=== PATIENT | male | born 1955 | race Caucasian/White ===

== ENCOUNTER 2016-11-03 16:52 | Emergency (ER) | payer OTHER, BC ==
[~2016-11-03] VITALS: Ht 177.8 cm; Wt 122.5 kg
--- NOTE | ~2016-11-03 | EKG ---
[address]{img} [place] [address] ELECTROCARDIOGRAM REPORT Name: LOUISMARIEMICHAUD [facility] [id number] Admission: 11/03/16 Attend Phys: Discharge: 11/03/16 Date of : 51 Report #: [id number] THIS REPORT FOR: //name// [facility] ED Test Date: 2016-11-03 Test Time: 17:22:30 Pat Name: MARIE MYERS Department: Room: Gender: M It Auditor: Aliyah KWAN : 1955 Requested By: Austyn Lazo Order Number: [id number] MD: Vincent Ruvalcaba Measurements Intervals [place] Rate: 60 P: 0 DC: 159 QRS: 132 QRSD: 162 T: -43 QT: 503 QTc: 503 Interpretive Statements No significant changeAtrial-paced complexes Nonspecific intraventricular conduction delay Borderline ST depression, anterolateral leads Baseline wander in lead(s) V2 Compared to ECG 03/07/2016 17:24:23 Electronically Signed On 11-04-2016 16:40:09 GEOPHYSICAL SUPPORT SPECIALIST by Vincent Ruvalcaba [email or web address] <ELECTRONICALLY SIGNED> By: Vincent Ruvalcaba MD 11/04/16 [facility] 21 21 Vincent Ruvalcaba MD /MARITZA
[~2016-11-03 16:52] MED LIST: ALLOPURINOL 10100 M1 PO; APAP650 PO; ASPIR 8181 MG PO; ATORVASTATIN CA40 MG PO; AUGMENTIN 875-1 EACH PO; AVAPRO 150 MG150 M1 PO; BRILINTA90 MG PO; COREG6.25 MG PO; CRESTOR10 MG PO; DEMADEX20 MG PO; DIGOXIN125 MCG PO; EFFIENT10 MG PO; ELIQUIS5 MG PO; NITROGLYCERIN0.4 MG SUBLING; PACERONE 200 M200 M1 PO; PROAIR HFA8.5 GM INH; PROTONIX40 M1 PO; RANEXA500 MG PO; ULORIC40 MG PO; UNICOMPLEX M TA1 TA1 PO; VITAMIN B-1100 M1 PO; VITAMINC500 PO
[2016-11-03 17:42] LABS: ABSOLUTE NEUTROPHILS 7.3 thou/uL (1.4-8.2); BASOPHILS 1.2 % (0.0-2.0); EOSINOPHILS 2.4 % (0.0-3.0); HEMATOCRIT 31.2 % (42.0-52.0); HEMOGLOBIN 9.4 gm/dL (14.0-18.0); MCHC 30.3 % (28.0-37.0); MCV 79.2 fL (80.0-100.0); MONOCYTES 11.1 % (1.0-8.0); PLATELET COUNT 236 thou/uL (150-400); POLYS 72.3 % (36.0-66.0); RBC 3.93 mil/uL (4.50-6.00); RDW 21.2 % (10.5-14.5); WBC 10.1 thou/uL (4.0-11.0)
[2016-11-03 17:43] LABS: MANUAL DIFF NO
[2016-11-03 17:50] LABS: ANION GAP 12 mmol/L (7-16); BUN 13 mg/dL (7-18); CALCIUM 8.5 mg/dL (8.5-10.1); CHLORIDE 98 mmol/L (98-107); CO2 26 mmol/L (21-32); CREATININE 1.2 mg/dL (0.6-1.3); GLUCOSE 87 mg/dL (70-99); POTASSIUM 3.7 mmol/L (3.5-5.1); SODIUM 136 mmol/L (136-145)
[2016-11-03 18:04] LABS: NT-PRO BRAIN NAT PEPTIDE 1991 pg/mL (<300); TROPONIN-I < 0.04 ng/mL (<0.04-0.07)
[2016-11-03] MEDS ORDERED: MEDROLDOSEPACK PO (19:30)
[2016-11-26] MEDS ORDERED: IRON325 PO (11:54)
[2016-11-26] MEDS ORDERED: PROTONIX 20 MG20 M1 PO (11:55)
[2016-11-29] MEDS ORDERED: HYDROCODONE-AP1 EAC6 PO (12:42)
== END 2016-11-03 19:39 | disposition home or self-care (01) ==
LOC: ER 16:52
PROVIDERS: Physician Assistant
DX: J40 Bronchitis, not specified as acute or chronic (principal); D64.9 Anemia, unspecified; K92.2 Gastrointestinal hemorrhage, unspecified; I50.9 Heart failure, unspecified; I25.2 Old myocardial infarction; Z87.891 Personal history of nicotine dependence

== ENCOUNTER 2016-11-06 20:31 | Emergency (ER) | payer OTHER, BC ==
[~2016-11-06] VITALS: Ht 177.8 cm; Wt 117.9 kg
--- NOTE | ~2016-11-06 | EKG ---
[place] [address] [facility] [place] [address] ELECTROCARDIOGRAM REPORT Name: MARIE MYERS Room #: DEP [facility] [id number] Admission: 11/06/16 Attend Phys: Discharge: 11/06/16 Date of : 51 Report #: [id number] THIS REPORT FOR: //name// [facility] ED Test Date: 2016-11-06 Test Time: 21:06:59 Pat Name: MARIE MYERS Department: Room: Gender: M Lands Resource Manager: SLAVA : 1955 Requested By: Vanessa Bonner Order Number: [id number] MD: Andrew Rivers Measurements Intervals [place] Rate: 60 P: CO: QRS: 121 QRSD: 156 T: -49 QT: 490 QTc: 490 Interpretive Statements Possible ventricular pacing Compared to ECG 11/03/2016 17:22:30 No significant change was found Electronically Signed On 11-07-2016 7:45:56 CHILD CARE CENTRE DIRECTOR by Andrew Rivers [email or web address] <ELECTRONICALLY SIGNED> By: Andrew Rievrs MD, [facility] 11/07/16 0745 2106 2106 Andrew Rivers MD, FACC /EPI
[~2016-11-06 20:31] MED LIST changes: +MEDROLDOSEPACK PO
[2016-11-06 21:21] LABS: ANION GAP 10 mmol/L (7-16); BUN 18 mg/dL (7-18); CALCIUM 8.5 mg/dL (8.5-10.1); CHLORIDE 98 mmol/L (98-107); CO2 26 mmol/L (21-32); CREATININE 1.3 mg/dL (0.6-1.3); GLUCOSE 130 mg/dL (70-99); POTASSIUM 4.4 mmol/L (3.5-5.1); SODIUM 134 mmol/L (136-145)
[2016-11-06 21:22] LABS: HEMATOCRIT 33.9 % (42.0-52.0); HEMOGLOBIN 9.9 gm/dL (14.0-18.0); MCH 24.3 pg (26.0-34.0); MCHC 29.3 % (28.0-37.0); MCV 82.7 fL (80.0-100.0); PLATELET COUNT 282 thou/uL (150-400); RDW 24.6 % (10.5-14.5); WBC 14.2 thou/uL (4.0-11.0)
[2016-11-06 21:25] LABS: MANUAL DIFF YES
[2016-11-06 21:34] LABS: NT-PRO BRAIN NAT PEPTIDE 2330 pg/mL (<300); TROPONIN-I < 0.04 ng/mL (<0.04-0.07)
[2016-11-06 21:51] LABS: ABSOLUTE NEUTROPHILS 12.6 thou/uL (1.4-8.2); ANISOCYTOSIS 2+; NUCLEATED RBCS 2 /100WBC; POIKILOCYTOSIS SLIGHT; POLYCHROMASIA SLIGHT; TOTAL CELL COUNT 100
[2016-11-26] MEDS ORDERED: IRON325 PO (11:54)
[2016-11-26] MEDS ORDERED: PROTONIX 20 MG20 M1 PO (11:55)
[2016-11-29] MEDS ORDERED: HYDROCODONE-AP1 EAC6 PO (12:42)
== END 2016-11-06 23:40 | disposition home or self-care (01) ==
LOC: ER 20:31
PROVIDERS: Emergency Medicine
DX: J06.9 Acute upper respiratory infection, unspecified (principal); M10.9 Gout, unspecified; I25.2 Old myocardial infarction; I25.810 Atherosclerosis of coronary artery bypass graft(s) without angina pectoris; Z87.891 Personal history of nicotine dependence

== ENCOUNTER 2017-07-19 12:59 | Emergency (ER) | payer OTHER, BC ==
[~2017-07-19] VITALS: Ht 177.8 cm; Wt 117.9 kg
[~2017-07-19 12:59] MED LIST changes: +HYDROCODONE-AP1 EAC6 PO; +IRON325 PO; +PROTONIX 20 MG20 M1 PO
[2017-07-19] MEDS ORDERED: CARVEDILOL6.25 MG (13:20)
[2017-07-19] MEDS ORDERED: PROTONIX 20 MG20 M1 PO (13:21)
[2017-07-19] MEDS ORDERED: AVAPRO 150 MG150 MG PO (13:21)
[2017-07-19] MEDS ORDERED: TRAMADOL 50 MG50 MG PO (14:26)
== END 2017-07-19 14:56 | disposition home or self-care (01) ==
LOC: ER 12:59
DX: M19.071 Primary osteoarthritis, right ankle and foot (principal); F10.99 Alcohol use, unspecified with unspecified alcohol-induced disorder; I25.2 Old myocardial infarction; Z87.891 Personal history of nicotine dependence

== ENCOUNTER 2017-07-23 06:30 | Observation (INO) | payer OTHER, BC ==
[~2017-07-23] VITALS: Ht 177.8 cm; Wt 122.4 kg
--- NOTE | ~2017-07-23 | P ---
[facility] [address] [place] [address] PROCEDURE REPORT Name: MARIE MYERS Room #: 212-P [facility].Ryne#: [id number] Admission: 07/23/17 Attend Phys: Qamar Echavarria MD Discharge: Date of : 51 Report #: [id number] THIS REPORT FOR: //name// CC: Mayco Echavarria DATE OF SERVICE: 07/23/2017 PREOPERATIVE DIAGNOSES: 1. Ischemic cardiomyopathy. 2. Left bundle-branch block. 3. Class 2-3 heart failure symptoms. HISTORY OF PRESENT ILLNESS: The patient is a 61-year-old with history of coronary artery disease status post CABG, history of an ischemic cardiomyopathy status post dual chamber ICD implantation implanted at an outside hospital. His ICD was recently noted to be at the elective replacement interval. He has had a known left bundle-branch block and has an EF of 35% with class 2-3 heart failure symptoms. He is here for an upgrade to a BiV ICD with a generator exchange. ANESTHESIA: The patient underwent MAC anesthesia with no anesthesia related complications. DESCRIPTION OF PROCEDURE: The patient underwent informed consent. We discussed the details of the procedure including the risks, which include but are not limited to bleeding, infection, vascular damage, cardiac perforation and pneumothorax. He understood these risks and was willing to proceed. The patient was brought to the EP laboratory in a fasting and sedated state and prepped and draped in a sterile fashion and received IV antibiotics prior to initiation of the procedure. A venogram was performed to look for patency of the left axillary vein. This was performed given his prior instrumentation of the left subclavian vessel. This showed patency of the left axillary vein. Next, I injected lidocaine to the prior incision site. The incision was opened and the device was taken out the pocket. I dissected out the leads. Next, I obtained access to the left axillary vein times 1 using the extrathoracic approach with the guidewire noted to be into the right atrium. Next, a 10-Wolof sheath was placed using the modified Seldinger technique. Next, the coronary sinus sheath was placed into the right atrium and it went very easily into the coronary sinus. I then performed a venogram. There was a nice posterior branch that was coming off the mid aspect of the coronary body. In fact, the sheath ____ this vessel as it came off the main coronary body at a 30-degree angle. I was easily able to place a lead into this vessel. However, there was a very high threshold throughout. I was able to advance the lead more atypically and there was a threshold of around 2 volts at 1.5 milliseconds. However, I did not like this location for the lead as it would be essentially an [address] [address] PROCEDURE REPORT Name: MARIE MYERS Room #: 212-P [facility] Nicole Pardo#: [id number] Admission: 07/23/17 Attend Phys: Qamar Echavarria MD Discharge: Date of : 51 Report #: [id number] apical pacing lead. I therefore pulled the lead back slightly and tried to see if anywhere along this large vessel there were good thresholds. I could not really find a good threshold. It recently had been noted that the patient had been taking the long dose of his amiodarone at 400 mg twice a day. We had had him stop his amiodarone approximately 1 week ago. I thought maybe this was contributing to the very high thresholds. I therefore took the lead to the posterior lateral branch. Again, thresholds were high throughout. I was able to finally find a descent pacing threshold pacing from M2 to the RV coil. The threshold was 1.7 volts at 1.0 millisecond. As such, the sheath was split and the LV lead was sutured to the prepectoral fascia. The leads were connected to the new device and tug test were performed. Thresholds, impedances and sensing were all stable. The pocket was then irrigated with vancomycin solution and then the pocket was closed in 3 layers and surgical glue was placed to the outer skin layer. The patient awoke neurologically and hemodynamically intact with no complications and no significant bleeding. The explanted generator was a [employer] model #251778, serial #[id number] originally. The newly implanted generator was a [employer] model #[id number], serial #[id number]. The atrial lead was a [employer] model #188TC, serial #[id number]. This lead demonstrated no underlying atrial signals. The impedance was 390 ohms and the pacing threshold was 0.75 volts at 0.4 milliseconds. The RV lead was a [employer] model #7120, serial #[id number]. This lead demonstrated pacing threshold of 1 volt at 0.4 milliseconds with a pacing impedance of 440 ohms and shock impedance within normal limits. The LV lead was a [employer] model #1458Q, 86 cm, serial [id number]. This lead demonstrated a pacing impedance of 640 ohms, pacing threshold of 1.75 volts at 1 millisecond. The pacing configuration was vector 5. also which is pacing from M2 to RV coil. This was utilized as the final pacing configuration given that it had the best pacing threshold. The device was programmed to the DDDR 60-110 mode. The VT zone was set at 150 with ATP times 9 followed by shocks. The VT2 zone was set at 180-230 beats per minute with ATP times 6 followed by max output shocks and the VF zone was set with ATP while charging followed by max output shocks. CONCLUSIONS: 1. Successful upgrade to a biventricular ICD. 2. Satisfactory generator exchange. 3. Satisfactory atrial, right ventricular, left ventricular pacing and sensing thresholds. By: 1055 1146 Qamar Echavarria MD /nt
[~2017-07-23 06:30] MED LIST changes: +AVAPRO 150 MG150 MG PO; +CARVEDILOL6.25 MG; +TRAMADOL 50 MG50 MG PO
[2017-07-23 07:07] LABS: HEMOGLOBIN 14.1 gm/dL (14.0-18.0)
[2017-07-23 07:09] LABS: ABSOLUTE NEUTROPHILS 6.8 thou/uL (1.4-8.2); BASOPHILS 1.3 % (0.0-2.0); EOSINOPHILS 3.5 % (0.0-3.0); HEMATOCRIT 41.1 % (42.0-52.0); MCHC 34.4 g/dL (28.0-37.0); MONOCYTES 9.5 % (1.0-8.0); PLATELET COUNT 264 thou/uL (150-400); POLYS 72.7 % (36.0-66.0); RBC 4.29 mil/uL (4.50-6.00); RDW 13.6 % (10.5-14.5); WBC 9.4 thou/uL (4.0-11.0)
[2017-07-23 07:14] LABS: MANUAL DIFF NO
[2017-07-23] MEDS ORDERED: IRON325 PO (07:15)
[2017-07-23 07:28] LABS: CALCIUM 9.3 mg/dL (8.5-10.1); CREATININE 1.2 mg/dL (0.7-1.3); POTASSIUM 4.2 mmol/L (3.5-5.1)
[2017-07-23 07:29] LABS: APTT 31.3 Seconds (24.5-32.8); PROTIME 10.7 Seconds (9.3-11.4)
[2017-07-23 07:30] VITALS: BP 115/73
[2017-07-23] MEDS ORDERED: XARELTO10 M1 PO (07:30)
[2017-07-23 07:34] LABS: TOTAL BILIRUBIN 0.9 mg/dL (<0.1-1.0); TOTAL PROTEIN 7.9 g/dL (6.4-8.2)
[2017-07-23 15:24] VITALS: BP 131/67
[2017-07-23 19:11] VITALS: BP 152/90
[2017-07-23 23:38] VITALS: BP 145/80
[2017-07-24 03:57] VITALS: BP 139/80
[2017-07-24 07:15] VITALS: BP 135/75
[2017-07-24 11:01] VITALS: BP 135/75
[2017-07-24 11:35] VITALS: BP 136/76
== END 2017-07-24 16:24 | disposition home or self-care (01) ==
LOC: CATH 06:30 → 2N 11:31 → CATH 13:51 → ENTRNSPT 07-24 16:07 → 2N 07-24 16:24
PROVIDERS: Internal Medicine Cardiovascular Disease
DX: I25.10 Atherosclerotic heart disease of native coronary artery without angina pectoris (principal); I25.5 Ischemic cardiomyopathy; I11.0 Hypertensive heart disease with heart failure; I50.22 Chronic systolic (congestive) heart failure; I44.7 Left bundle-branch block, unspecified; I25.2 Old myocardial infarction; J44.9 Chronic obstructive pulmonary disease, unspecified; E78.00 Pure hypercholesterolemia, unspecified; I48.0 Paroxysmal atrial fibrillation; Z95.810 Presence of automatic (implantable) cardiac defibrillator; Z87.891 Personal history of nicotine dependence

== ENCOUNTER 2017-11-22 16:47 | Emergency (ER) | payer OTHER, BC ==
[~2017-11-22] VITALS: Ht 175.3 cm; Wt 117.9 kg
--- NOTE | ~2017-11-22 | EKG ---
[place] [address] [facility] [place] [address] ELECTROCARDIOGRAM REPORT Name: MARIE MYERS [facility] [id number] Admission: 11/22/17 Attend Phys: Discharge: 11/22/17 Date of : 51 Report #: [id number] THIS REPORT FOR: //name// [facility] ED Test Date: 2017-11-22 Test Time: 17:01:37 Pat Name: MARIE MYERS Department: Room: Gender: Burner Machine Operator: MZOOK : 1955 Requested By: Suman Romo Order Number: [id number] MD: Andrew Rivers Measurements Intervals [place] Rate: 60 P: 0 CT: 152 QRS: 147 QRSD: 224 T: -66 QT: 459 QTc: 459 Interpretive Statements Atrial-ventricular dual-paced rhythm No further analysis attempted due to paced rhythm Baseline wander in lead(s) V4 Compared to ECG 11/06/2016 21:06:59 No significant changes Electronically Signed On 11-23-2017 9:00:14 KINDERGARTEN PREP TEACHER by Andrew Rivers [email or web address] <ELECTRONICALLY SIGNED> By: Andrew Rivers MD, [facility] 11/23/17 0900 170 170 Andrew Rivers MD, [facility] /EPI
[~2017-11-22 16:47] MED LIST changes: +XARELTO10 M1 PO
[2017-11-22] MEDS ORDERED: XARELTO20 MG PO (17:21)
[2017-11-22 17:38] LABS: HEMATOCRIT 40.1 % (42.0-52.0); HEMOGLOBIN 13.5 gm/dL (14.0-18.0); MCH 31.3 pg (26.0-34.0); MCHC 33.7 g/dL (28.0-37.0); MCV 92.8 fL (80.0-100.0); PLATELET COUNT 228 thou/uL (150-400); RBC 4.32 mil/uL (4.50-6.00); RDW 14.2 % (10.5-14.5)
[2017-11-22 17:50] LABS: ANION GAP 15 mmol/L (7-16); BUN 30 mg/dL (7-18); CALCIUM 8.9 mg/dL (8.5-10.1); CHLORIDE 96 mmol/L (98-107); CO2 22 mmol/L (21-32); CREATININE 1.3 mg/dL (0.7-1.3); GLUCOSE 95 mg/dL (74-106); POTASSIUM 4.3 mmol/L (3.5-5.1); SODIUM 133 mmol/L (136-145)
[2017-11-22 17:55] LABS: APTT 41.2 Seconds (24.5-32.8); INR 1.3; PROTIME 12.8 Seconds (9.3-11.4)
[2017-11-22 17:58] LABS: ALBUMIN 4.3 g/dL (3.4-5.0); MAGNESIUM 2.3 mg/dL (1.8-2.4); SGOT 47 U/L (15-37); SGPT 64 U/L (30-65); TOTAL BILIRUBIN 0.5 mg/dL (<0.1-1.0); TOTAL PROTEIN 7.5 g/dL (6.4-8.2); TROPONIN-I < 0.04 ng/mL (<0.06)
[2017-11-22 18:02] LABS: ABSOLUTE NEUTROPHILS 5.7 thou/uL (1.4-8.2); ANISOCYTOSIS 1+; METAMYELOCYTES 1 %; POLYCHROMASIA OCCASIONAL
[2017-11-22] MEDS ORDERED: PREDNISONE 20 M20 MG PO (18:16)
[2017-11-22] MEDS ORDERED: TESSALON PERLE100 MG PO (18:16)
[2017-11-22] MEDS ORDERED: TRAMADOL 50 MG50 MG PO (18:16)
[2017-11-22 18:24] VITALS: BP 133/74
[2018-07-04] MEDS ORDERED: IRON325 PO (09:34)
[2018-08-20] MEDS ORDERED: ASPIRIN325 PO (06:49)
[2018-08-20] MEDS ORDERED: AVAPRO 150 MG150 MG PO (06:50)
[2018-08-20] MEDS ORDERED: PROTONIX 20 MG20 M1 PO (06:51)
[2018-08-20] MEDS ORDERED: XARELTO10 MG PO (06:53)
[2018-08-20] MEDS ORDERED: TORSEMIDE20 MG PO (06:55)
[2018-08-20] MEDS ORDERED: VITAMIN D35000 UNI1 PO (07:31)
[2018-08-20] MEDS ORDERED: SPIRONOLACTONE25 MG PO (13:10)
== END 2017-11-22 18:25 | disposition home or self-care (01) ==
LOC: ER 16:47
PROVIDERS: Emergency Medicine
DX: J06.9 Acute upper respiratory infection, unspecified (principal); I25.10 Atherosclerotic heart disease of native coronary artery without angina pectoris; M10.9 Gout, unspecified; I25.2 Old myocardial infarction; I48.91 Unspecified atrial fibrillation; J44.9 Chronic obstructive pulmonary disease, unspecified; E78.5 Hyperlipidemia, unspecified; I10 Essential (primary) hypertension; Z87.891 Personal history of nicotine dependence

== ENCOUNTER → 2018-01-28 | Outpatient (CLI) | payer OTHER, BC ==
[~2018-01-28] MED LIST changes: +PREDNISONE 20 M20 MG PO; +TESSALON PERLE100 MG PO; +XARELTO20 MG PO
--- NOTE | ~2018-01-28 | 2DMMODE ---
[facility] [address] [place] [address] 2 D/M-MODE ECHOCARDIOGRAM Name: MYERSMARIEMICHAUD Room #: REG [facility]#: [id number] Admission: 01/28/18 Attend Phys: Qamar Echavarria Discharge: Date of : 51 Date of Service: 01/28/18 1228 Report #: [id number] THIS REPORT FOR: //name// APPROVED REPORT Study performed: 01/28/2018 11:01:23 EXAM: Comprehensive 2D, Doppler, and color-flow Echocardiogram Patient Location: Out-Patient Status: routine BSA: 2.31 HR: 59 bpm BP: 140/86 mmHg Other Information Study Quality: Adequate Indications Cardiomyopathy. Hx: VT, CABG, stents, CHF, ICD, COPD, HTN, HLP 2D Dimensions RVDd: 50.55 mm LVEF(%): 29.65 (>50%) IVSd: 12.53 (7-11mm) LVOT Diam: 24.44 (18-24mm) LVDd: 69.66 mm PWd: 12.50 (7-11mm) Ascending Ao: 35.63 (22-36mm) LVDs: 59.67 (25-40mm) Aortic Root: 36.49 mm Davis's LVEF: 29.65 % Volumes Left Atrial Volume (Systole) Single Plane 4CH: 96.47 mL Single Plane 2CH: 105.71 mL LA ESV Index: 47.00 mL/m2 Aortic Valve AoV Peak Buddy.: 1.40 m/s AO Peak Gr.: 7.81 mmHg LVOT Max P.88 mmHg LVOT Max V: 0.98 m/s NORTH Vmax: 3.31 cm2 Mitral Valve E/A Ratio: 0.8 MV Decel. Time: 279.48 ms MV E Max Buddy.: 0.55 m/s [facility] [place] [address] 2 D/M-MODE ECHOCARDIOGRAM Name: MARIE MYERS Room #: REG [facility]#: [id number] Admission: 01/28/18 Attend Phys: Qamar Echavarria Discharge: Date of : 51 Date of Service: 01/28/18 1228 Report #: [id number] MV A Buddy.: 0.73 m/s MV PHT: 81.05 ms IVRT: 96.89 ms Pulmonary Valve PV Peak Buddy.: 1.08 m/s PV Peak Gr.: 4.65 mmHg Tricuspid Valve TR Peak Buddy.: 2.96 m/s RAP Estimate: 5.00 mmHg TR Peak Gr.: 35.07 mmHg PA Pressure: 40.00 mmHg Left Ventricle Left ventricle is dilated. Mild concentric left ventricular hypertrophy. Left ventricular systolic function is moderate to severely decreased. LVEF is30- 35%. Mild diastolic dysfunction is present (impaired relaxation pattern). Right Ventricle Right ventricle is dilated. Right ventricle is hypokinetic. Device lead is present in the right ventricle. Atria Left atrium is severely dilated. Right atrium is moderately dilated. Aortic Valve The aortic valve is normal in structure. Trace aortic regurgitation. There is no aortic valvular stenosis. Mitral Valve The mitral valve is normal in structure. Moderate mitral regurgitation. Tricuspid Valve The tricuspid valve is normal in structure. Mild to moderate tricuspid regurgitation. Estimated PAP is 40-45mmHg. Pulmonic Valve The pulmonary valve is normal in structure. Mild pulmonic regurgitation. Great Vessels The aortic root is normal in size. The ascending aorta is normal in size. IVC is normal in size and collapses >50% with inspiration. [facility] [address] [place] [address] 2 D/M-MODE ECHOCARDIOGRAM Name: MARIE MYERS Room #: REG Edvin#: [id number] Admission: 01/28/18 Attend Phys: Qamar Echavarria Discharge: Date of : 51 Date of Service: 01/28/18 1228 Report #: [id number] Pericardium There is no pericardial effusion. <Conclusion> Left ventricle is dilated. Mild concentric left ventricular hypertrophy. Left ventricular systolic function is moderate to severely decreased. LVEF is30- 35%. Mild diastolic dysfunction is present (impaired relaxation pattern). Right ventricle is dilated. Right ventricle is hypokinetic. Left atrium is severely dilated. Right atrium is moderately dilated. The aortic valve is normal in structure. Moderate mitral regurgitation. Mild to moderate tricuspid regurgitation. Estimated PAP is 40-45mmHg. The aortic root is normal in size. There is no pericardial effusion. <ELECTRONICALLY SIGNED> By: Timi Keen MD, FACC 01/28/18 1228 1228 1228 Timi Keen MD, FACC /INF
== END ==
LOC: CV 10:48
DX: I42.9 Cardiomyopathy, unspecified (principal); I11.0 Hypertensive heart disease with heart failure; I50.9 Heart failure, unspecified; E78.5 Hyperlipidemia, unspecified; J44.9 Chronic obstructive pulmonary disease, unspecified

== ENCOUNTER 2018-04-20 18:56 | Inpatient (IN) | payer OTHER, BC ==
[~2018-04-20] VITALS: Ht 172.7 cm; Wt 127.5 kg
--- NOTE | ~2018-04-20 | EKG ---
[place] [address] [facility] [place] [address] ELECTROCARDIOGRAM REPORT Name: MARIE MYERS Room #: 240-P ADM IN M.R.#: [id number] Admission: 04/20/18 Attend Phys: [place] Menchaca Discharge: Date of : 51 Report #: [id number] THIS REPORT FOR: //name// [facility] Test Date: 2018-04-21 Test Time: 11:39:59 Pat Name: MARIE MYERS Department: Room: 240 P Gender: M Manager Public: STANLEY : 1955 Requested By: Qamar Echavarria Order Number: [id number] MD: Andrew Rivers Measurements Intervals [place] Rate: 60 P: 19 PA: 38 QRS: 143 QRSD: 186 T: -64 QT: 490 QTc: 490 Interpretive Statements Atrial-ventricular dual-paced rhythm No further analysis attempted due to paced rhythm Compared to ECG 11/22/2017 17:01:37 No significant changes Electronically Signed On 04-22-2018 17:00:37 CDT by Andrew Rivers [email or web address] <ELECTRONICALLY SIGNED> By: Andrew Rivers MD, [facility] 04/22/18 1700 1139 1139 Andrew Rivers MD, [facility] /EPI
--- NOTE | ~2018-04-20 | HC ---
[facility] [address] [place] [address] CONSULTATION Name: MARIE MYERS Room #: 240-P ADM IN M.R.#: [id number] Admission: 04/20/18 Attend Phys: [place] Menchaca Discharge: Date of : 51 Report #: [id number] THIS REPORT FOR: //name// CC: Mayco Menchaca DATE OF SERVICE: 04/21/2018 REASON FOR CONSULTATION: History of cardiomyopathy. HISTORY OF PRESENT ILLNESS: The patient is a 62-year-old patient of mine who has history of ischemic cardiomyopathy as well as recent upgrade to a biventricular ICD in 07/2017 as well as sustained ventricular tachycardia for which he is treated with amiodarone therapy. He presented to the hospital with severe abdominal pain and also some urinary frequency. He was diagnosed with pancreatitis. CT demonstrated pancreatitis. Abdominal ultrasound showed no significant stones. REVIEW OF SYSTEMS: GENERAL: No fevers or chills. HEENT: No blurred vision. CARDIOVASCULAR: As above. PULMONARY: No productive cough. GASTROINTESTINAL: He has been having the abdominal pain, some nausea. GENITOURINARY: He has been having some difficulty urinating. ENDOCRINE: No heat or cold intolerance. NEUROLOGIC: No focal weakness or stroke-like symptoms. PAST MEDICAL HISTORY: 1. Coronary artery disease, status post CABG. 2. Ischemic cardiomyopathy. 3. History of dual chamber ICD with upgrade to a biventricular ICD in 07/[address] 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 4. Sustained ventricular tachycardia, admitted for this in 2015, on amiodarone 400 mg a day. 5. Paroxysmal atrial fibrillation. FAMILY HISTORY: Noncontributory. SOCIAL HISTORY: Social drinking. ALLERGIES: None. MEDICATIONS: Have been reviewed. He is on anticoagulation, carvedilol, irbesartan, and amiodarone 400 mg b.i.d., which he needs for his cardiomyopathy and sustained ventricular tachycardia. [facility] [address] [place] [address] CONSULTATION Name: LOUISMARIE LA Room #: 240-P [facility] IN [facility]#: [id number] Admission: 04/20/18 Attend Phys: [place] Menchaca Discharge: Date of : 51 Report #: [id number] PHYSICAL EXAMINATION: VITAL SIGNS: Temperature is 37.1, pulse 60, respiration 20, blood pressure 116/67, sats are 95%. GENERAL: He is in no acute distress. HEENT: Oropharynx is clear. His sclerae are anicteric. NECK: Supple, no thyromegaly. HEART: Regular rate and rhythm with no murmurs, rubs or gallops. He does not have elevated jugular venous pressures. LUNGS: Clear to auscultation bilaterally. ABDOMEN: There is some epigastric tenderness, but no rebound. There is no hepatosplenomegaly. EXTREMITIES: There is no clubbing, cyanosis or edema. Pulses are 2+ throughout. NEUROLOGICAL: Cranial nerves 2-12 are intact. LABORATORY DATA: White count is hemoglobin is 10.4, platelets are 255. Chemistries: Sodium 136, potassium 4.3, chloride 100, BUN 18, creatinine 1.2, glucose 115. AST is 40, ALT is 59, alkaline phosphatase is 78. Troponin is negative x 1. ProBNP is pending. His lipase is 10,000 and was greater than 30,000. ASSESSMENT: 1. Pancreatitis. 2. Ischemic cardiomyopathy. 3. Coronary artery disease. 4. History of biventricular ICD implantation. 5. Paroxysmal atrial fibrillation. 6. Urinary frequency. PLAN: In summary, the patient is a 62-year-old with a history of cardiac disease, ventricular tachycardia, biventricular ICD, in with a newly diagnosed pancreatitis. GI is involved and will evaluate this further. Ideally, we could continue on amiodarone as this is suppressing his ventricular arrhythmias. I did discuss that he should not drink alcohol further. With regards his cardiomyopathy, this appears to be clinically stable and he does not appear to be in failure. With regards to his urinary issues, I will check a PSA and I will have the hospitalist evaluate this further. <ELECTRONICALLY SIGNED> By: Qamar Echavarria MD 04/22/18 1327 1142 1903 Qamar Echavarria MD /nt
--- NOTE | ~2018-04-20 | HC ---
[facility] [address] [place] [address] CONSULTATION Name: MARIE MYERS Room #: [address] [place] [address] IN M.R.#: [id number] Admission: 04/20/18 Attend Phys: [place] Menchaca Discharge: Date of : 51 Report #: [id number] THIS REPORT FOR: //name// CC: Mayco Echavarria MD DATE OF SERVICE: 04/21/2018 HISTORY OF PRESENT ILLNESS: The patient is a 62-year-old male, began having mid epigastric abdominal pain and became fairly severe yesterday. On admission, he was noted to have a lipase greater than 30,000. No previous history of pancreatitis. He does consume several beers on a regular basis. Apparently, he had a history of heavier alcohol use in the past. Today, he is feeling better. He is currently in the ICU. He is on oxygen several liters nasal cannula. He is not on oxygen at home. He denies being short of breath at home, but apparently he has a pulse ox at home and tested from time to time. He does have a history of smoking, but not recently. Currently, he is denying any nausea or vomiting. His bowel movements have been normal. His pain is under good control at this time. He denies any blood in his stools. He is not short of breath at rest currently. No fevers or chills. He states his last colonoscopy was 2 years ago, had some polyps removed and unfortunately had a post-polypectomy bleed apparently. PAST MEDICAL HISTORY: Coronary artery disease, previous history of OH in 1988, gout. He has undergone a CABG as well as stent placements in the past. Lower extremity cellulitis, pleural effusion history, previous history of alcohol abuse, history of ventricular tachycardia in 2016, atrial fibrillation, hypertension, COPD. MEDICATIONS ON ADMISSION: Coreg, Ranexa, Demadex, Lipitor, vitamin C, Xarelto, vitamin D, Avapro, Pacerone, aspirin. ALLERGIES: No known drug allergies. REVIEW OF SYSTEMS: As per HPI. SOCIAL HISTORY: Previous history of heavy smoking, not recently; previous history of heavy alcohol use, but continues. He states he consume several beers on a daily basis. FAMILY HISTORY: Positive for colon cancer in his mother in her 90s. PHYSICAL EXAMINATION: VITAL SIGNS: Temperature is 98.8, pulse 60, blood pressure 126/87, respiratory [facility] [address] [place] [address] CONSULTATION Name: MARIE MYERS Room #: 240-P [facility] IN .R.#: [id number] Admission: 04/20/18 Attend Phys: [place] Menchaca Discharge: Date of : 51 Report #: [id number] rate is 21, O2 sat is 95% on nasal canula oxygen. GENERAL: He is alert and oriented x 3, in no acute distress. HEENT: Sclerae nonicteric. Oropharynx clear. NECK: Supple without lymphadenopathy. CARDIOVASCULAR: Regular rate and rhythm. CHEST: With decreased breath sounds bilaterally. ABDOMEN: Soft. He is mildly tender to palpation in the mid epigastrium, nondistended. Positive bowel sounds. EXTREMITIES: No cyanosis, clubbing or edema. LABORATORY DATA: Sodium 136, potassium 4.3, chloride 100, bicarbonate 25, BUN 18, creatinine 1.2, glucose 115. AST is 40. Lipase yesterday greater than today is 10,057. Total bilirubin 0.8, alkaline phosphatase 78, uric acid 9.6, total protein 7.1, albumin 3.7. Troponins less than 0.06. Triglyceride level is 94. WBC is 16.2, hemoglobin 10.4, MCV is 76.6, platelet count is 255. CT scan of the abdomen and pelvis on admission yesterday shows pancreatitis changes without pseudocyst formation. There was fat stranding around the pancreas with non-organized fluid. Liver was normal. Gallbladder was present and normal. Ultrasound of the abdomen also performed. No evidence of cholelithiasis or bile duct obstruction, hepatomegaly without obvious hepatic steatosis was noted. Chest x-ray today shows generalized cardiomegaly without overt failure. ASSESSMENT AND PLAN: Pancreatitis, suspect this may be secondary to alcohol. The patient's triglyceride levels are normal. His gallbladder is normal without stones or ductal dilation both on CT and ultrasound as well as his bilirubin being normal. He has been on no new medications recently. Agree with current supportive care, IV fluids, pain medications, antinausea medications. We will repeat labs tomorrow. If they continue to improve, we will likely start clear liquids in the near future, would recommend discontinuing alcohol. Thank you for allowing me to participate in his care. <ELECTRONICALLY SIGNED> By: Mike Meier MD 04/22/18 1417 1538 2423 Mike Meier MD /nt
--- NOTE | ~2018-04-20 | EKG ---
[address] [place] [address] ELECTROCARDIOGRAM REPORT Name: MARIE MYERS Room #: 423-1 ADM IN M.R.#: [id number] Admission: 04/20/18 Attend Phys: [place] Menchaca Discharge: Date of : 51 Report #: [id number] THIS REPORT FOR: //name// [facility] Test Date: 2018-04-24 Test Time: 20:23:18 Pat Name: MARIE MYERS Department: Room: [facility] Gender: M Glue Drier Operator: alex : 1955 Requested By: Jordan Menchaca Order Number: [id number] MD: Andrew Rivers Measurements Intervals [place] Rate: 61 P: -52 RI: 116 QRS: 150 QRSD: 194 T: -41 QT: 520 QTc: 524 Interpretive Statements A-V dual-paced rhythm with some inhibition No further analysis attempted due to paced rhythm Baseline wander in lead(s) V3 Compared to ECG 04/21/2018 11:39:59 no significant change was found Electronically Signed On 04-25-2018 8:42:54 CDT by Andrew Rivers [email or web address] <ELECTRONICALLY SIGNED> By: Andrew Rivers MD, [facility] 04/25/18 0842 22 22 Andrew Rivers MD, [facility] /EPI
--- NOTE | ~2018-04-20 | EKG ---
[place] [address] [address] [facility] [place] [address] ELECTROCARDIOGRAM REPORT Name: MARIE MYERS Room #: 240-P ADM IN M.R.#: [id number] Admission: 04/20/18 Attend Phys: Jordan Menchaca Discharge: Date of : 51 Report #: [id number] THIS REPORT FOR: //name// [facility] ED Test Date: 2018-04-20 Test Time: 19:31:28 Pat Name: MARIE MYERS Department: Room: Gender: M Agricultural Education Instructor: Aliyah JUAREZ : 1955 Requested By: Suman Romo Order Number: [id number] MD: Andrew Rivers Measurements Intervals [place] Rate: 60 P: 12 MI: 83 QRS: 252 QRSD: 251 T: 111 QT: 635 QTc: 635 Interpretive Statements Atrial-ventricular dual-paced rhythm No further analysis attempted due to paced rhythm Compared to ECG 11/22/2017 17:01:37 No significant changes Electronically Signed On 04-22-2018 16:53:35 CDT by Andrew Rivers [email or web address] <ELECTRONICALLY SIGNED> By: Andrew Rivers MD, [facility] [id number] 30 30 Andrew Rivers MD, [facility] /EPI
[2018-04-20 19:10] VITALS: BP 155/78
[2018-04-20 19:37] LABS: ABSOLUTE NEUTROPHILS 12.9 thou/uL (1.4-8.2); BASOPHILS 1.2 % (0.0-2.0); EOSINOPHILS 1.6 % (0.0-3.0); HEMATOCRIT 34.2 % (42.0-52.0); HEMOGLOBIN 10.9 gm/dL (14.0-18.0); LYMPHOCYTES 4.1 % (24.0-44.0); MCH 24.3 pg (26.0-34.0); MCV 76.1 fL (80.0-100.0); MONOCYTES 4.7 % (1.0-8.0); PLATELET COUNT 263 thou/uL (150-400); POLYS 88.4 % (36.0-66.0); RDW 16.3 % (10.5-14.5); WBC 14.6 thou/uL (4.0-11.0)
[2018-04-20 19:40] LABS: ANION GAP 9 mmol/L (7-16); BUN 16 mg/dL (7-18); CALCIUM 9.4 mg/dL (8.5-10.1); CHLORIDE 97 mmol/L (98-107); CO2 26 mmol/L (21-32); CREATININE 1.1 mg/dL (0.7-1.3); GLUCOSE 118 mg/dL (74-106); POTASSIUM 3.7 mmol/L (3.5-5.1); SODIUM 132 mmol/L (136-145)
[2018-04-20 19:56] LABS: ALBUMIN 4.3 g/dL (3.4-5.0); SGOT 65 U/L (15-37); SGPT 78 U/L (30-65); TOTAL BILIRUBIN 0.9 mg/dL (<0.1-1.0); TOTAL PROTEIN 7.7 g/dL (6.4-8.2); TROPONIN-I <0.06 ng/mL (<0.06)
[2018-04-20 20:08] LABS: LIPASE > 30000 U/L (73-393)
[2018-04-20] MEDS ORDERED: VITAMIN D2000 UNIT PO (20:53)
[2018-04-20] MEDS ORDERED: AVAPRO 150 MG150 M1 PO (20:54)
[2018-04-20] MEDS ORDERED: PACERONE 200 M200 M1 PO (20:56)
[2018-04-20] MEDS ORDERED: ASA5UEC PO (20:56)
[2018-04-20 21:03] VITALS: BP 129/70
[2018-04-20 21:22] VITALS: BP 129/70
[2018-04-20 21:28] VITALS: BP 134/78
[2018-04-21] VITALS (21 sets, daily range): BP systolic 102–143; BP diastolic 40–96
[2018-04-21 08:05] LABS: HEMATOCRIT 32.6 % (42.0-52.0); HEMOGLOBIN 10.4 gm/dL (14.0-18.0); MCH 24.4 pg (26.0-34.0); MCHC 31.8 g/dL (28.0-37.0); MCV 76.6 fL (80.0-100.0); RBC 4.25 mil/uL (4.50-6.00); RDW 15.9 % (10.5-14.5); WBC 16.2 thou/uL (4.0-11.0)
[2018-04-21 08:23] LABS: ALBUMIN 3.7 g/dL (3.4-5.0); CALCIUM 8.5 mg/dL (8.5-10.1); CREATININE 1.2 mg/dL (0.7-1.3); POTASSIUM 4.3 mmol/L (3.5-5.1); TOTAL BILIRUBIN 0.8 mg/dL (<0.1-1.0); TOTAL PROTEIN 7.1 g/dL (6.4-8.2)
[2018-04-21 16:52] LABS: URINE BILIRUBIN NEGATIVE (Negative); URINE BLOOD 3+ (Negative); URINE CLARITY CLEAR; URINE COLOR YELLOW; URINE GLUCOSE-RANDOM* NEGATIVE (Negative); URINE KETONES NEGATIVE (Negative); URINE LEUKOCYTES-REFLEX NEGATIVE (Negative); URINE NITRITE-REFLEX NEGATIVE (Negative); URINE PROTEIN (DIPSTICK) TRACE (Negative); URINE SPECIFIC GRAVITY 1.015 (1.005-1.035); URINE UROBILINOGEN 0.2 E.U./dl (0.2-1.0)
[2018-04-21 17:15] LABS: URINE WBC-REFLEX 6-15 Few /HPF (0-5)
[2018-04-21 17:16] LABS: SQUAMOUS 0-3 Few /LPF (0-3); URINE RBC >20 Many /HPF (0-2)
[2018-04-21 17:17] LABS: BACTERIA-REFLEX None Seen /HPF (None Seen); CASTS None Seen /LPF (None Seen); CRYSTALS None Seen /LPF (None Seen)
[2018-04-22] VITALS (19 sets, daily range): BP systolic 111–168; BP diastolic 51–90
[2018-04-22 04:47] LABS: ABSOLUTE NEUTROPHILS 11.6 thou/uL (1.4-8.2); BASOPHILS 0.3 % (0.0-2.0); EOSINOPHILS 0.7 % (0.0-3.0); HEMATOCRIT 32.4 % (42.0-52.0); HEMOGLOBIN 10.1 gm/dL (14.0-18.0); LYMPHOCYTES 4.2 % (24.0-44.0); MCH 24.2 pg (26.0-34.0); MCHC 31.2 g/dL (28.0-37.0); MCV 77.7 fL (80.0-100.0); MONOCYTES 10.1 % (1.0-8.0); PLATELET COUNT 223 thou/uL (150-400); POLYS 84.7 % (36.0-66.0); RBC 4.17 mil/uL (4.50-6.00); RDW 16.3 % (10.5-14.5); WBC 13.7 thou/uL (4.0-11.0)
[2018-04-22 04:59] LABS: TROPONIN-I <0.06 ng/mL (<0.06)
[2018-04-22 05:10] LABS: LIPASE 3216 U/L (73-393)
[2018-04-23] VITALS (15 sets, daily range): BP systolic 97–159; BP diastolic 60–97
[2018-04-23 03:46] LABS: ALBUMIN 3.1 g/dL (3.4-5.0); CALCIUM 8.4 mg/dL (8.5-10.1); CREATININE 1.2 mg/dL (0.7-1.3); POTASSIUM 4.7 mmol/L (3.5-5.1); TOTAL BILIRUBIN 0.6 mg/dL (<0.1-1.0); TOTAL PROTEIN 6.5 g/dL (6.4-8.2)
[2018-04-24 03:42] VITALS: BP 115/60
[2018-04-24 05:51] LABS: ALBUMIN 3.1 g/dL (3.4-5.0); CALCIUM 8.6 mg/dL (8.5-10.1); CREATININE 1.1 mg/dL (0.7-1.3); POTASSIUM 4.7 mmol/L (3.5-5.1); TOTAL BILIRUBIN 0.6 mg/dL (<0.1-1.0); TOTAL PROTEIN 6.1 g/dL (6.4-8.2)
[2018-04-24 08:00] VITALS: BP 114/68
[2018-04-24 16:00] VITALS: BP 128/65
[2018-04-24 18:32] LABS: BE(vivo) 1.6 mmol/L (-2 to +3); HCO3 26.6 mmol/L (22.0-26.0); PCO2 43.7 mmHg (35.0-45.0); PO2 67.3 mmHg (80.0-100.0); pH 7.403 (7.360-7.450); sO2 93.4 % (92.0-98.0)
[2018-04-24 19:09] VITALS: BP 131/41
[2018-04-24 23:50] VITALS: BP 109/68
[2018-04-25 07:31] LABS: ALBUMIN 2.9 g/dL (3.4-5.0); CALCIUM 8.5 mg/dL (8.5-10.1); PHOSPHORUS 3.7 mg/dL (2.5-4.9)
[2018-04-25 08:12] VITALS: BP 122/72
[2018-04-25 15:48] VITALS: BP 125/79
[2018-04-25 20:08] VITALS: BP 119/74
[2018-04-26 02:54] VITALS: BP 112/67
[2018-04-26 08:21] LABS: HEMATOCRIT 29.8 % (42.0-52.0); HEMOGLOBIN 9.6 gm/dL (14.0-18.0); MCH 24.7 pg (26.0-34.0); MCV 77.1 fL (80.0-100.0); RBC 3.87 mil/uL (4.50-6.00); RDW 16.1 % (10.5-14.5); WBC 6.8 thou/uL (4.0-11.0)
[2018-04-26 08:41] LABS: CALCIUM 8.3 mg/dL (8.5-10.1); CREATININE 1.1 mg/dL (0.7-1.3); MAGNESIUM 1.8 mg/dL (1.8-2.4); POTASSIUM 3.7 mmol/L (3.5-5.1); TOTAL BILIRUBIN 0.8 mg/dL (<0.1-1.0); TOTAL PROTEIN 6.3 g/dL (6.4-8.2)
[2018-04-26 14:04] VITALS: BP 98/51
[2018-04-26 20:36] VITALS: BP 137/68
[2018-04-27 04:12] VITALS: BP 129/66
[2018-04-27 04:36] LABS: CREATININE 1.1 mg/dL (0.7-1.3); MAGNESIUM 1.8 mg/dL (1.8-2.4); POTASSIUM 3.7 mmol/L (3.5-5.1)
[2018-04-27 07:29] VITALS: BP 124/72
[2018-04-27 16:11] VITALS: BP 98/58
[2018-04-27 19:30] VITALS: BP 101/56
[2018-04-28 03:50] VITALS: BP 121/71
[2018-04-28 05:46] LABS: ALBUMIN 2.8 g/dL (3.4-5.0); CALCIUM 7.9 mg/dL (8.5-10.1); CREATININE 1.2 mg/dL (0.7-1.3); PHOSPHORUS 4.8 mg/dL (2.5-4.9)
[2018-04-28 08:45] VITALS: BP 100/57
[2018-04-28 09:45] LABS: % SATURATION 7 % (20-39); IRON 20 ug/dL (65-175); TIBC 294 ug/dL (250-450)
[2018-04-28] MEDS ORDERED: COLCRYS0.6 MG PO (12:19)
[2018-04-28 12:37] VITALS: BP 100/57
== END 2018-04-28 14:02 | disposition home or self-care (01) | DRG 438 ==
LOC: ER 18:56 → ICU 20:30 → EROBS 20:30 → 4W 21:15 → ICU 04-21 09:35 → 4E 04-23 12:10
PROVIDERS: Emergency Medicine; Hospitalist; Internal Medicine Geriatric Medicine; Nurse Practitioner; Nurse Practitioner Acute Care
DX: K85.20 Alcohol induced acute pancreatitis without necrosis or infection (principal); K65.9 Peritonitis, unspecified; I50.22 Chronic systolic (congestive) heart failure; J96.10 Chronic respiratory failure, unspecified whether with hypoxia or hypercapnia; Z68.41 Body mass index [BMI] 40.0-44.9, adult; M10.9 Gout, unspecified; I25.10 Atherosclerotic heart disease of native coronary artery without angina pectoris; I25.5 Ischemic cardiomyopathy; J44.9 Chronic obstructive pulmonary disease, unspecified; E78.5 Hyperlipidemia, unspecified; D53.9 Nutritional anemia, unspecified; I48.0 Paroxysmal atrial fibrillation; R35.0 Frequency of micturition; I11.0 Hypertensive heart disease with heart failure; R74.0 Nonspecific elevation of levels of transaminase and lactic acid dehydrogenase [LDH]; E66.9 Obesity, unspecified; K76.0 Fatty (change of) liver, not elsewhere classified; D72.829 Elevated white blood cell count, unspecified; Z87.81 Personal history of (healed) traumatic fracture; I25.2 Old myocardial infarction; Z95.1 Presence of aortocoronary bypass graft; Z95.5 Presence of coronary angioplasty implant and graft; Z95.0 Presence of cardiac pacemaker; Z87.891 Personal history of nicotine dependence; Z80.0 Family history of malignant neoplasm of digestive organs; Z83.3 Family history of diabetes mellitus
CPT/HCPCS: 10045; 10078; 10183; 10783

== ENCOUNTER 2018-07-30 15:00 | Inpatient (IN) | payer OTHER, BC ==
[~2018-07-30] VITALS: Ht 175.3 cm; Wt 116.1 kg
--- NOTE | ~2018-07-30 | EKG ---
[address] [address] ELECTROCARDIOGRAM REPORT Name: MARIE MYERS Room #: 364-P ADM IN M.R.#: [id number] Admission: 07/30/18 Attend Phys: Vinnie Torres MD Discharge: Date of : 51 Report #: [id number] THIS REPORT FOR: //name// [facility] Test Date: 2018-08-01 Test Time: 14:09:32 Pat Name: MARIE MYERS Department: Room: 364 P Gender: M Commercial Pilot: Susanna MCKEON : 1955 Requested By: Vinnie Torres Order Number: [id number] MD: Qamar Echavarria Measurements Intervals [place] Rate: 60 P: 0 MT: 146 QRS: 0 QRSD: 198 T: -50 QT: 573 QTc: 573 Interpretive Statements Atrial-ventricular dual-paced rhythm No further analysis attempted due to paced rhythm Compared to ECG 07/30/2018 15:11:07 No significant changes Electronically Signed On 08-02-2018 8:17:57 CDT by Qamar Echavarria [email or web address] <ELECTRONICALLY SIGNED> By: Qamar Echavarria MD 08/02/18 0817 1409 1409 Qamar Echavarria MD /EPI
--- NOTE | ~2018-07-30 | EKG ---
[address] [address] ELECTROCARDIOGRAM REPORT Name: MARIE MYERS Room #: 170-7 ADM IN M.R.#: [id number] Admission: 07/30/18 Attend Phys: Vinnie Torres MD Discharge: Date of : 51 Report #: [id number] THIS REPORT FOR: //name// [facility] ED Test Date: 2018-07-30 Test Time: 15:11:07 Pat Name: MARIE MYERS Department: Room: 170 Gender: M Social Work Coordinator: IZABELLA : 1955 Requested By: Rishabh Alaniz Order Number: [id number] MD: Qamar Echavarria Measurements Intervals [place] Rate: 60 P: 0 TN: 80 QRS: 128 QRSD: 190 T: 123 QT: 533 QTc: 533 Interpretive Statements Atrial-ventricular dual-paced complexes No further analysis attempted due to paced rhythm Compared to ECG 07/02/2018 15:50:04 No significant changes Electronically Signed On 07-30-2018 17:43:32 CDT by Qamar Echavarria [email or web address] <ELECTRONICALLY SIGNED> By: Qamar Echavarria MD 07/30/18 1743 1511 1511 Qamar Echavarria MD /EPI
--- NOTE | ~2018-07-30 | HC ---
[facility] [address] [place] [address] CONSULTATION Name: MARIE MYERS Room #: 364-P ADM IN M.R.#: [id number] Admission: 07/30/18 Attend Phys: Vinnie Torres MD Discharge: Date of : 51 Report #: [id number] THIS REPORT FOR: //name// CC: Mayco Torres REASON FOR CONSULTATION: Weakness and fatigue. HISTORY OF PRESENT ILLNESS: The patient is a 62-year-old with history of coronary artery disease, ischemic cardiomyopathy, [place] Bi-V ICD as well as VT and atrial fibrillation, on amiodarone. I recently spoke to his PCP and apparently there was new onset anemia and some possible blood in the stools. Therefore, I recommended they stop his anticoagulation. He was going to see the test fixture assembler. Apparently, he started having worsening fatigue, no energy. He also said he felt lightheaded, but had no presyncopal episodes. He reports that shortness of breath is pretty much stable. He denies any chest pain or chest tightness. REVIEW OF SYSTEMS: GENERAL: No fevers or chills. HEENT: No blurred vision. CARDIOVASCULAR: As above. PULMONARY: No productive cough. GASTROINTESTINAL: Some possible blood in the stools and some abdominal distention. GENITOURINARY: No dysuria. MUSCULOSKELETAL: Profound weakness of the muscles, but no myalgias or arthralgias. ENDOCRINE: No heat or cold intolerance. PAST MEDICAL HISTORY: Please see my prior notes. SOCIAL HISTORY: Positive for ETOH use. FAMILY HISTORY: Noncontributory. ALLERGIES: None. MEDICATIONS: Include allopurinol, potassium supplementation, amiodarone 400 a day, ceftriaxone, Coreg 6.25 b.i.d., pantoprazole, torsemide 20 b.i.d., ranolazine, atorvastatin. PHYSICAL EXAMINATION: VITAL SIGNS: Temperature is 36.6, pulse 54, respirations 20, blood pressure 101/63, sats are 93%. GENERAL: He is in no acute distress. HEENT: Oropharynx is clear. [facility] [address] [place] [address] CONSULTATION Name: MYERSMARIEMICHAUD Room #: 364-P [facility] IN M.R.#: [id number] Admission: 07/30/18 Attend Phys: Vinnie Torres MD Discharge: Date of : 51 Report #: [id number] NECK: Supple, no thyromegaly. HEART: Regular rate and rhythm. He does have positive elevated jugular venous pressures. LUNGS: Clear bilaterally. ABDOMEN: Soft, nontender, nondistended with no hepatosplenomegaly. EXTREMITIES: There is no clubbing, cyanosis, or edema. NEUROLOGIC: Cranial nerves 2-12 are intact. LABORATORY DATA: A 12-lead EKG shows AV sequential pacing with a wide QRS complex. Telemetry shows no significant arrhythmias. LABORATORY DATA: White count 10, hemoglobin 9, and platelets 232. Chemistries: Sodium 140, potassium 2.7, BUN 12, creatinine 1.0. Troponin is negative x 2. ProBNP is 2236. ASSESSMENT: 1. Hypokalemia. 2. Anemia. 3. Possible gastrointestinal bleed. 4. Chronic systolic heart failure. PLAN: In summary, the patient is 62-year-old with ischemic cardiomyopathy, status post BiV ICD with profound hypokalemia as well as anemia. I recommend that we replace the potassium. I would hold off on any further diuretics until at least his potassium is 3.5. We can consider resuming diuretics afterwards. With regards to his cardiomyopathy, I do not feel that he is in full blown heart failure right now. He is pretty much at his baseline. We will continue with his regular cardiac medications. I will continue to follow. By: 1559 0220 Qamar Echavarria MD /nt
--- NOTE | ~2018-07-30 | PATH ---
[facility] [address] [place] [address] PATHOLOGY RPT PROCEDURE Name: PIERRE MYERS Room #: 364-P DIS IN M.R.#: [id number] Admission: 07/30/18 Date of : 51 Discharge: 08/04/18 Report #: [id number] Path Case #: [id number] [facility] Accession Number: [id number] . 01 Material submitted: . PART A: BX OF DUODENUM PART B: BX OF GASTRIC PART C: BX OF DISTAL ESOPHAGUS . 01 Clinical history: . Hiatal hernia, gastritis Rule out celiac Rule out H. pylori Rule out Thompson's . 02 Diagnosis: A. Duodenum, biopsy: - Fragment of duodenal mucosa with no diagnostic changes. - There is no evidence of acute cryptitis, granulomas, adenomatous change, sprue-like changes or malignancy. . B. Gastric biopsy "biopsy of gastric mucosa R/O H. pylori": - Mild chronic reactive gastropathy. - The immunoperoxidase stain for Helicobacter pylori is negative. . C. Glandular gastric-type mucosa "biopsy of distal esophagus": - Thompson's esophagus with goblet cell metaplasia. - There is no evidence of dysplasia or malignancy. See comment. (SHA:claudia; 08/06/2018) QMS/08/06/2018 . 02 Comment: This case is also reviewed by Dr. Philly Raymundo. . 02 Electronically signed: . Idris Jewell MD, Pathologist NPI- [id number] . 01 Gross description: . A. The specimen is received in formalin, labeled "Pierre Myers, BX of duodenum" and consists of 2 fragments of soft paz tissue measuring 0.4 x 0.2 x 0.1 cm and 0.3 x 0.2 x 0.2 cm. They are entirely submitted in A1. . B. The specimen is received in formalin, labeled "Pierre Myers, gastric BX" and consists of a fragment of soft paz tissue measuring 0.4 x 0.3 x 0.1 cm which is entirely submitted in B1. . [address] [address] PATHOLOGY RPT PROCEDURE Name: PIERRE MYERS ABHINAV Room #: 364-P DIS IN M.R.#: [id number] Admission: 07/30/18 Date of : 51 Discharge: 08/04/18 Report #: [id number] Path Case #: [id number] C. The specimen is received in formalin, labeled "Myers, Pierre, distal esophagus" and consists of 2 fragments of gunn-paz tissue measuring 0.3 x 0.1 x 0.1 cm and 0.2 x 0.2 x 0.2 cm. They are entirely submitted in C1. (SDY; 08/05/2018) SYU/SYU . 02 Pathologist provided ICD-10: K31.9, K22.70 . 02 CPT . 045025, 155653, 340434 Specimen Comment: A courtesy copy of this report has been sent to Specimen Comment: [phone], , . Specimen Comment: Report sent to ,DR JENSEN / DR TAPIA Performed at: [address], [place] [id number] MD Chuy Banks MD Phone: [phone] Performed at: [address] [id number] MD Anne-Marie Bryant MD Phone: [phone]
[2018-07-30 15:00] VITALS: BP 107/66
[~2018-07-30 15:00] MED LIST changes: +ASA5UEC PO; +COLCRYS0.6 MG PO; +VITAMIN D2000 UNIT PO
[2018-07-30] MEDS ORDERED: TRAMADOL 50 MG50 MG PO (15:16)
[2018-07-30] MEDS ORDERED: ALLOPURINOL 30300 M1 PO (15:16)
[2018-07-30] MEDS ORDERED: PACERONE 200 M200 M1 PO (15:16)
[2018-07-30 16:02] LABS: ABSOLUTE NEUTROPHILS 8.5 thou/uL (1.4-8.2); BASOPHILS 1.2 % (0.0-2.0); EOSINOPHILS 2.3 % (0.0-3.0); HEMATOCRIT 32.5 % (42.0-52.0); HEMOGLOBIN 9.9 gm/dL (14.0-18.0); LYMPHOCYTES 10.2 % (24.0-44.0); MCH 22.9 pg (26.0-34.0); MCHC 30.6 g/dL (28.0-37.0); MONOCYTES 6.7 % (1.0-8.0); PLATELET COUNT 273 thou/uL (150-400); POLYS 79.6 % (36.0-66.0); RBC 4.33 mil/uL (4.50-6.00); RDW 18.4 % (10.5-14.5); WBC 10.7 thou/uL (4.0-11.0)
[2018-07-30 16:14] LABS: ALBUMIN 2.9 g/dL (3.4-5.0); ANION GAP 12 mmol/L (7-16); BUN 14 mg/dL (7-18); CALCIUM 8.3 mg/dL (8.5-10.1); CHLORIDE 100 mmol/L (98-107); CO2 24 mmol/L (21-32); CREATININE 1.1 mg/dL (0.7-1.3); DIRECT BILIRUBIN 0.6 mg/dL (<0.1-0.3); GLUCOSE 105 mg/dL (74-106); LIPASE 124 U/L (73-393); SGOT 84 U/L (15-37); SGPT 59 U/L (30-65); SODIUM 136 mmol/L (136-145); TOTAL PROTEIN 6.4 g/dL (6.4-8.2); TROPONIN-I <0.06 ng/mL (<0.06)
[2018-07-30 16:16] LABS: POTASSIUM 2.7 mmol/L (3.5-5.1)
[2018-07-30 16:21] VITALS: BP 110/57
[2018-07-30 18:50] VITALS: BP 125/68
[2018-07-30 18:58] LABS: URINE BILIRUBIN NEGATIVE (Negative); URINE BLOOD NEGATIVE (Negative); URINE CLARITY CLEAR; URINE COLOR YELLOW; URINE GLUCOSE-RANDOM* NEGATIVE (Negative); URINE KETONES NEGATIVE (Negative); URINE LEUKOCYTES 1+ (Negative); URINE NITRITE NEGATIVE (Negative); URINE PROTEIN (DIPSTICK) NEGATIVE (Negative); URINE SPECIFIC GRAVITY <= 1.005 (1.005-1.035)
[2018-07-30 19:06] LABS: CASTS None Seen /LPF (None Seen); CRYSTALS None Seen /LPF (None Seen); SQUAMOUS None Seen /LPF (0-3)
[2018-07-30 19:07] LABS: URINE RBC None Seen /HPF (0-2)
[2018-07-30 20:45] VITALS: BP 112/57
[2018-07-31] VITALS: BP 127/70
[2018-07-31 04:50] VITALS: BP 101/62
[2018-07-31 06:13] LABS: HEMATOCRIT 30.5 % (42.0-52.0); HEMOGLOBIN 9.3 gm/dL (14.0-18.0); MCH 22.6 pg (26.0-34.0); MCHC 30.4 g/dL (28.0-37.0); MCV 74.2 fL (80.0-100.0); RBC 4.11 mil/uL (4.50-6.00); RDW 18.9 % (10.5-14.5); WBC 10.8 thou/uL (4.0-11.0)
[2018-07-31 06:38] LABS: ALBUMIN 2.8 g/dL (3.4-5.0); CALCIUM 8.1 mg/dL (8.5-10.1); TOTAL PROTEIN 5.9 g/dL (6.4-8.2)
[2018-07-31 06:40] LABS: POTASSIUM 2.7 mmol/L (3.5-5.1)
[2018-07-31 08:45] VITALS: BP 131/75
[2018-07-31 10:46] LABS: % SATURATION 6 % (20-39); IRON 18 ug/dL (65-175); TIBC 285 ug/dL (250-450)
[2018-07-31 11:14] VITALS: BP 115/73
[2018-07-31 15:42] VITALS: BP 101/68
[2018-07-31 19:52] VITALS: BP 125/90
[2018-08-01 06:02] VITALS: BP 122/55
[2018-08-01 06:09] LABS: CALCIUM 8.1 mg/dL (8.5-10.1); POTASSIUM 4.2 mmol/L (3.5-5.1)
[2018-08-01 07:57] VITALS: BP 103/49
[2018-08-01 09:34] LABS: HEMATOCRIT 30.9 % (42.0-52.0); HEMOGLOBIN 9.4 gm/dL (14.0-18.0)
[2018-08-01] MEDS ORDERED: K-DUR 20 MEQ T20 MEQ PO (11:46)
[2018-08-01 11:50] VITALS: BP 99/45
[2018-08-01 12:41] VITALS: BP 128/92
[2018-08-01 14:26] LABS: HEMATOCRIT 32.6 % (42.0-52.0); HEMOGLOBIN 9.8 gm/dL (14.0-18.0); MCH 22.8 pg (26.0-34.0); RBC 4.29 mil/uL (4.50-6.00); RDW 19.8 % (10.5-14.5); WBC 12.7 thou/uL (4.0-11.0)
[2018-08-01 14:34] LABS: ANION GAP 6 mmol/L (7-16); BUN 13 mg/dL (7-18); CALCIUM 8.4 mg/dL (8.5-10.1); CHLORIDE 106 mmol/L (98-107); CO2 26 mmol/L (21-32); CREATININE 1.2 mg/dL (0.7-1.3); GLUCOSE 141 mg/dL (74-106); POTASSIUM 4.3 mmol/L (3.5-5.1); SODIUM 138 mmol/L (136-145)
[2018-08-01 14:42] LABS: LIPASE 97 U/L (73-393); TROPONIN-I <0.06 ng/mL (<0.06)
[2018-08-01 16:09] VITALS: BP 93/52
[2018-08-01 19:21] VITALS: BP 109/61
[2018-08-02 04:02] VITALS: BP 121/70
[2018-08-02 06:10] LABS: HEMATOCRIT 34.8 % (42.0-52.0); MCH 22.1 pg (26.0-34.0); MCHC 28.8 g/dL (28.0-37.0); MCV 76.7 fL (80.0-100.0); RBC 4.54 mil/uL (4.50-6.00); RDW 20.5 % (10.5-14.5); WBC 12.9 thou/uL (4.0-11.0)
[2018-08-02 06:38] LABS: DIRECT BILIRUBIN 0.8 mg/dL (<0.1-0.3); TOTAL BILIRUBIN 1.1 mg/dL (<0.1-1.0); TOTAL PROTEIN 6.2 g/dL (6.4-8.2)
[2018-08-02 08:15] VITALS: BP 112/55
[2018-08-02 12:15] VITALS: BP 138/80
[2018-08-02 16:48] VITALS: BP 137/83
[2018-08-02 20:20] VITALS: BP 108/66
[2018-08-03 05:35] VITALS: BP 129/44
[2018-08-03 07:04] VITALS: BP 99/74
[2018-08-03 07:15] LABS: CALCIUM 8.6 mg/dL (8.5-10.1); CREATININE 1.3 mg/dL (0.7-1.3); POTASSIUM 4.4 mmol/L (3.5-5.1)
[2018-08-03 11:36] VITALS: BP 97/63
[2018-08-03 15:33] VITALS: BP 104/68
[2018-08-03 19:50] VITALS: BP 121/77
[2018-08-04 04:00] VITALS: BP 101/58
[2018-08-04 04:38] LABS: BASOPHILS 0.8 % (0.0-2.0); EOSINOPHILS 3.6 % (0.0-3.0); HEMATOCRIT 33.3 % (42.0-52.0); HEMOGLOBIN 10.1 gm/dL (14.0-18.0); LYMPHOCYTES 8.7 % (24.0-44.0); MCH 22.9 pg (26.0-34.0); MCHC 30.3 g/dL (28.0-37.0); MCV 75.5 fL (80.0-100.0); MONOCYTES 7.2 % (1.0-8.0); PLATELET COUNT 238 thou/uL (150-400); POLYS 79.7 % (36.0-66.0); RBC 4.41 mil/uL (4.50-6.00); RDW 20.5 % (10.5-14.5); WBC 11.3 thou/uL (4.0-11.0)
[2018-08-04 04:48] LABS: CALCIUM 8.2 mg/dL (8.5-10.1); CREATININE 1.2 mg/dL (0.7-1.3); POTASSIUM 4.3 mmol/L (3.5-5.1)
[2018-08-04 05:55] LABS: ANISOCYTOSIS 2+; HYPOCHROMASIA 2+; OVALOCYTES OCCASIONAL
[2018-08-04 08:41] VITALS: BP 99/53
[2018-08-04] MEDS ORDERED: DEMADEX 2020 MG/1 TA PO (12:34)
[2018-08-04] MEDS ORDERED: K-DUR 20 MEQ T20 MEQ PO (12:34)
[2018-08-04] MEDS ORDERED: COZAAR100 MG PO (12:34)
[2018-08-04 13:29] VITALS: BP 99/53
== END 2018-08-04 13:50 | disposition home or self-care (01) | DRG 438 ==
LOC: ER 15:00 → EROBS 17:36 → 3W 17:36
PROVIDERS: Family Medicine; Internal Medicine Cardiovascular Disease; Internal Medicine Gastroenterology; Nurse Practitioner; Nurse Practitioner Family
DX: K85.90 Acute pancreatitis without necrosis or infection, unspecified (principal); I50.23 Acute on chronic systolic (congestive) heart failure; N39.0 Urinary tract infection, site not specified; R18.8 Other ascites; E87.2 Acidosis; J98.11 Atelectasis; E46 Unspecified protein-calorie malnutrition; I47.2 Ventricular tachycardia; K22.70 Barrett's esophagus without dysplasia; K29.70 Gastritis, unspecified, without bleeding; R10.9 Unspecified abdominal pain; M10.9 Gout, unspecified; I25.10 Atherosclerotic heart disease of native coronary artery without angina pectoris; I25.5 Ischemic cardiomyopathy; J44.9 Chronic obstructive pulmonary disease, unspecified; E87.6 Hypokalemia; I48.2 Chronic atrial fibrillation; E78.5 Hyperlipidemia, unspecified; D50.9 Iron deficiency anemia, unspecified; E66.9 Obesity, unspecified; K76.0 Fatty (change of) liver, not elsewhere classified; K44.9 Diaphragmatic hernia without obstruction or gangrene; I11.0 Hypertensive heart disease with heart failure; Z28.21 Immunization not carried out because of patient refusal; I25.2 Old myocardial infarction; Z95.1 Presence of aortocoronary bypass graft; Z87.81 Personal history of (healed) traumatic fracture; Z95.5 Presence of coronary angioplasty implant and graft; Z95.0 Presence of cardiac pacemaker; Z87.891 Personal history of nicotine dependence; Z82.49 Family history of ischemic heart disease and other diseases of the circulatory system; Z83.3 Family history of diabetes mellitus; Z68.37 Body mass index [BMI] 37.0-37.9, adult; Z86.010 Personal history of colon polyps; Z80.0 Family history of malignant neoplasm of digestive organs
CPT/HCPCS: 10879; 62110; 62900; 70005

== ENCOUNTER → 2018-08-20 | Outpatient (CLI) | payer OTHER, BC ==
[~2018-08-20] VITALS: Ht 177.8 cm; Wt 113.4 kg
[~2018-08-20] MED LIST changes: +ALLOPURINOL 30300 M1 PO; +ASPIRIN325 PO; +COZAAR100 MG PO; +DEMADEX 2020 MG/1 TA PO; +K-DUR 20 MEQ T20 MEQ PO; +SPIRONOLACTONE25 MG PO; +TORSEMIDE20 MG PO; +VITAMIN D35000 UNI1 PO; +XARELTO10 MG PO
--- NOTE | ~2018-08-20 | CATHLAB ---
[facility] [address] [place] [address] INVASIVE PROCEDURE REPORT Name: LOUISMARIE LA Room #: REG Edvin#: [id number] Admission: 08/20/18 Attend Phys: Timi Keen, Discharge: Date of : 51 Date of Service: 08/21/18 1616 Report #: [id number] THIS REPORT FOR: //name// APPROVED REPORT Study performed: 08/20/2018 09:33:08 Procedure Narrative The Right Groin^ was infiltrated with 1% Lidocaine subcutaneous anesthesia. A PINNACLE 6FR Sheath #[id number] sheath was inserted into the RFA. Coronary angiography was performed using coronary diagnostic catheters. The right coronary system was accessed and visualized with a JR4 catheter. The left coronary system was accessed and visualized with a JL4 catheter. The left ventricle was accessed and visualized with a PIGTAIL catheter. Left ventriculogram was performed in 30 degree projection. An aortogram of the abdominal aorta was performed. Closure device was deployed with a 6 Fr MYNXGRIP 6/7F #[id number]. Hemostasis was obtained with manual pressure following sheath removal without any complications. The patient tolerated the procedure well and there were no complications associated with the procedure. There was no hematoma. Intraoperative Conscious Sedation Sedation start time: 09:51 Case end Time: 10:43 Fentanyl 100 mcg Versed 3 mg Fluoro Time: 11.30 minutes Dose: DAP 65022.83 cGycm2 1942 mGy Contrast Type and Amount: Visipaque 190 ml Hemodynamics The right atrial mean pressure is 15 mmHg. The right ventricular pressure is 61/12 mmHg. The pulmonary artery pressure is 58/20 mmHg with a mean of 37 mmHg. The mean pulmonary capillary wedge pressure is 18 mmHg. The aortic pressure is 123/62 mmHg with a mean of 54 mmHg. The left ventricular pressure is 119/9 mmHg with a mean of mmHg. The left ventricular end diastolic pressure is 24 mmHg. The cardiac output using thermo method is 5.10 L/min. The cardiac index using thermo method is 2.22 L/min/m2. Conclusion #1 successful right heart catheterization with cardiac output by thermodilution. See above hemodynamics #2 moderate left ventricular dilatation with severe hypokinesis [facility] [address] [place] [address] INVASIVE PROCEDURE REPORT Name: MARIE MYERS Room #: REG Edvin#: [id number] Admission: 08/20/18 Attend Phys: Timi Keen, Discharge: Date of : 51 Date of Service: 08/21/18 1616 Report #: [id number] globally akinetic in scarred inferior wall EF 20% range moderate anterior wall function 3 abdominal aortogram intact with mild aortic ectasia #4 left main moderate in size with mild disease and calcification giving rise to LAD and circumflex #5 LAD is proximally occluded #6 circumflex OM the first OM has a high-grade lesion its relatively small in distribution. The remainder of the circumflex is occluded #7 BRITO to LAD is intact filling and LAD which stops proximal to the apex and some retrograde filling of a moderate septal branch which provides some inferior wall collateral fill #8 the tangirnaq right looks of been large and dominant and is occluded proximally faint collateral filling from the left system is noted of the PDA #9 there is apparent radial or SVG graft to a diagonal system provides some collateral filling to a distal OM #10 I suspect there is possibly an old occluded graft to the right or to OM which is not found does not appear to fill on the LV gram Recommendations and plan: Continue aggressive risk factor modification needs aggressive diuresis. The OM branch would be the only target is small and distribution and probably would provide little benefit. Patient will have close follow-up with Dr. Ocampo in all monitoring thank you for <ELECTRONICALLY SIGNED> By: Timi Keen MD, FACC 08/21/18 1616 15 15 Timi Keen MD, FACC /INF
--- NOTE | ~2018-08-20 | EKG ---
[place] [address] [facility] [place] [address] ELECTROCARDIOGRAM REPORT Name: MARIE MYERS [id number] Admission: 08/20/18 Attend Phys: Timi Keen MD, Discharge: Date of : 51 Report #: [id number] THIS REPORT FOR: //name// [facility] Test Date: 2018-08-20 Test Time: 07:13:46 Pat Name: MARIE MYERS Department: Room: Gender: Voice Writing Reporter: Susanna MCKEON : 1955 Requested By: Timi Keen Order Number: [id number] MD: Andrew Rivers Measurements Intervals [place] Rate: 60 P: 197 WI: 155 QRS: 122 QRSD: 202 T: 117 QT: 536 QTc: 536 Interpretive Statements Atrial-ventricular dual-paced rhythm No further analysis attempted due to paced rhythm Compared to ECG 08/01/2018 14:09:32 No significant changes Electronically Signed On 08-20-2018 8:02:39 CDT by Andrew Rivers [email or web address] <ELECTRONICALLY SIGNED> By: Andrew Rivers MD, [facility] 08/20/18801 2 2 Andrew Rivers MD, [facility] /EPI
[2018-08-20 07:10] LABS: HEMATOCRIT 45.4 % (42.0-52.0); HEMOGLOBIN 14.5 gm/dL (14.0-18.0); MCV 81.2 fL (80.0-100.0); RBC 5.59 mil/uL (4.50-6.00); WBC 12.5 thou/uL (4.0-11.0)
[2018-08-20 07:14] VITALS: BP 147/73
[2018-08-20 07:25] LABS: CALCIUM 9.2 mg/dL (8.5-10.1); CREATININE 1.4 mg/dL (0.7-1.3); POTASSIUM 4.7 mmol/L (3.5-5.1)
== END | disposition home or self-care (01) ==
LOC: CATH 06:36
PROVIDERS: Internal Medicine Cardiovascular Disease
DX: I25.10 Atherosclerotic heart disease of native coronary artery without angina pectoris (principal); I77.811 Abdominal aortic ectasia; I11.0 Hypertensive heart disease with heart failure; I50.9 Heart failure, unspecified; I48.91 Unspecified atrial fibrillation; I42.9 Cardiomyopathy, unspecified; E78.5 Hyperlipidemia, unspecified; J44.9 Chronic obstructive pulmonary disease, unspecified; D50.9 Iron deficiency anemia, unspecified; M10.9 Gout, unspecified; Z95.1 Presence of aortocoronary bypass graft; Z95.5 Presence of coronary angioplasty implant and graft; Z87.891 Personal history of nicotine dependence; Z95.810 Presence of automatic (implantable) cardiac defibrillator; Z87.19 Personal history of other diseases of the digestive system; Z98.890 Other specified postprocedural states; Z79.01 Long term (current) use of anticoagulants; Z79.899 Other long term (current) drug therapy; Z79.82 Long term (current) use of aspirin